=== PATIENT | male | born 1960 | race Caucasian/White ===

== ENCOUNTER 2020-08-29 14:42 | Emergency (ER) | payer OTHER ==
[2020-08-29 15:56] LABS: BASOPHIL 0.2 % (0-2); EOSINOPHIL 0.1 % (0-5); HCT 42.5 % (42.0-52.0); HGB 15.3 g/dl (13.2-18.0); LYMPHOCYTE 14.6 % (15-48); MCH 33.6 pg (25.0-31.0); MCV 93.2 fL (78.0-100.0); MONOCYTE 5.7 % (0-12); MPV 9.3 fL (6.0-9.5); NEUTROPHIL 78.9 % (41-80); NRBC 0; PLT 239 K/uL (150-400); RBC 4.56 M/uL (4.70-6.00); RDW 12.5 % (11.5-14.0); WBC 12.3 K/uL (4.0-10.5)
[2020-08-29 16:09] LABS: INR 1.04 (0.9-1.2); PROTHROMBIN TIME 12.9 SECONDS (11.4-13.6)
[2020-08-29 16:18] LABS: ALBUMIN 3.7 g/dL (3.4-5.0); BILIRUBIN - TOTAL 0.5 mg/dL (0.2-1.0); BUN/CREAT RATIO (CALC) 14.1 RATIO; CREATININE 0.78 mg/dL (0.67-1.17); POTASSIUM 4.1 mmol/L (3.5-5.1); TOTAL PROTEIN 7.7 g/dL (6.4-8.2)
[2020-08-29 16:27] LABS: CKMB 0.6 ng/mL (0.0-3.6)
== END 2020-08-29 17:00 | disposition home or self-care (01) ==
LOC: FER 14:42
PROVIDERS: Emergency Medicine
DX: R55 Syncope and collapse (principal); I10 Essential (primary) hypertension; Z91.041 Radiographic dye allergy status
CPT/HCPCS: 36415; 70450; 71046; 80053; 82553; 84484; 85025; 85610; 85730; 93005

== ENCOUNTER 2021-03-08 16:29 | Emergency (ER) | payer OTHER ==
[2021-03-08 16:50] LABS: BASOPHIL 0.4 % (0-2); EOSINOPHIL 4.1 % (0-5); HCT 46.2 % (42.0-52.0); HGB 16.1 g/dl (13.2-18.0); LYMPHOCYTE 37.2 % (15-48); MCH 33.2 pg (25.0-31.0); MCHC 34.8 g/dL (32.0-36.0); MCV 95.3 fL (78.0-100.0); MONOCYTE 9.1 % (0-12); MPV 9.4 fL (6.0-9.5); NEUTROPHIL 48.9 % (41-80); NRBC 0; PLT 237 K/uL (150-400); RBC 4.85 M/uL (4.70-6.00); RDW 12.3 % (11.5-14.0); WBC 7.3 K/uL (4.0-10.5)
[2021-03-08 17:09] LABS: ALBUMIN 3.9 g/dL (3.4-5.0); BILIRUBIN - TOTAL 0.5 mg/dL (0.2-1.0); BUN/CREAT RATIO (CALC) 11.5 RATIO; CREATININE 0.87 mg/dL (0.67-1.17); POTASSIUM 3.9 mmol/L (3.5-5.1); TOTAL PROTEIN 7.9 g/dL (6.4-8.2)
[2021-03-08 17:45] LABS: CORONAVIRUS 2019 SARS-COV-2 NEGATIVE (NEGATIVE); INFLUENZA A NAA NEGATIVE (NEGATIVE)
== END 2021-03-08 18:39 | disposition other institution (70) ==
LOC: FER 16:29
PROVIDERS: Emergency Medicine
DX: I21.19 ST elevation (STEMI) myocardial infarction involving other coronary artery of inferior wall (principal); I10 Essential (primary) hypertension; Z91.041 Radiographic dye allergy status; Z20.822 Contact with and (suspected) exposure to COVID-19
CPT/HCPCS: 36415; 36600; 71045; 80053; 82803; 83605; 83880; 84145; 84484; 85025; 93005; J1200; J1644; J1940; J2930; U0002

== ENCOUNTER 2021-12-01 08:02 | Emergency (ER) | payer OTHER ==
[2021-12-01 08:43] LABS: BASOPHIL 0.7 % (0-2); EOSINOPHIL 4.8 % (0-5); HCT 43.1 % (42.0-52.0); HGB 14.9 g/dl (13.2-18.0); LYMPHOCYTE 27.7 % (15-48); MCHC 34.6 g/dL (32.0-36.0); MCV 95.4 fL (78.0-100.0); MONOCYTE 9.2 % (0-12); MPV 9.6 fL (6.0-9.5); NEUTROPHIL 57.3 % (41-80); NRBC 0; PLT 197 K/uL (150-400); RBC 4.52 M/uL (4.70-6.00); RDW 12.8 % (11.5-14.0)
[2021-12-01 08:53] LABS: ALBUMIN 3.5 g/dL (3.4-5.0); BILIRUBIN - TOTAL 0.7 mg/dL (0.2-1.0); BUN/CREAT RATIO (CALC) 13.9 RATIO; CREATININE 0.79 mg/dL (0.67-1.17); POTASSIUM 4.3 mmol/L (3.5-5.1); TOTAL PROTEIN 7.5 g/dL (6.4-8.2)
[2021-12-01 13:00] LABS: INR 0.99 (0.9-1.2); PROTHROMBIN TIME 12.8 SECONDS (11.9-13.9)
== END 2021-12-01 16:40 | disposition other institution (70) ==
LOC: FER 08:02
PROVIDERS: Emergency Medicine
DX: I21.4 Non-ST elevation (NSTEMI) myocardial infarction (principal); I20.0 Unstable angina; Z20.822 Contact with and (suspected) exposure to COVID-19; Z91.041 Radiographic dye allergy status
CPT/HCPCS: 36415; 71045; 80053; 83735; 83880; 84484; 85025; 85610; 85730; 93005; J1644; U0002